=== PATIENT | female | born 1980 | race Two or more races ===

== ENCOUNTER 2023-03-18 05:12 | Day surgery (SDC) | payer OTHER ==
[~2023-03-18 05:12] MED LIST: FLEX PO; HORIZANT300 MG PO; RELAF PO
== END 2023-03-18 10:25 | disposition home or self-care (01) ==
LOC: CIR.AMB 05:12
PROVIDERS: ATTEND Surgery Surgery of the Hand
DX: M65.841 Other synovitis and tenosynovitis, right hand (principal); Z88.2 Allergy status to sulfonamides; Z88.1 Allergy status to other antibiotic agents; Z91.040 Latex allergy status; Z20.822 Contact with and (suspected) exposure to COVID-19